=== PATIENT | female | born 1945 | race Hispanic/Latino ===

== ENCOUNTER → 2017-06-10 | Outpatient (CLI) | payer MEDICARE, OTHER ==
[~2017-06-10] MED LIST: CIPRO PO; ESCITALOPRAM PO; LEVETIRACETAM PO; NIFEDIPINE PO; VESICARE PO
--- NOTE | 2017-06-10 14:13 | Diagnostic Imaging Report ---
PROCEDURE:US RETROPERITONEAL ( KIDNEY ). COMPARISON:None. INDICATIONS:Microscopic Hematuria, Urianary Tract Infection TECHNIQUE: Quintero-scale and color sonographic images of the bilateral kidneys and bladder where obtained in transverse and longitudinal planes. FINDINGS: RIGHT KIDNEY: 7.6 x 4.3 x 4.6 cm, cortex 1.2 cm Cysts: None Solid masses: None Stones: None Hydronephrosis: Pelviectasis Echogenicity: Increased LEFT KIDNEY: 8.9 x 5.7 x 4.8 cm, cortex 1 cm Cysts: None Solid masses: None Stones: None Hydronephrosis: Pelviectasis Echogenicity: Increased Bladder: Unremarkable. Both ureteral jets visualized. CONCLUSION: 1. Increased renal echogenicity suggestive of medical renal disease. 2. If hematuria persists and if GFR permits, consider CT urography for further evaluation. Dictated by: Boyd Rangel M.D. on 06/10/2017 at 14:12 Electronically approved by: Boyd Rangel M.D. on 06/10/2017 at 14:12
== END ==
LOC: US 11:13
PROVIDERS: ATTEND Urology
DX: R31.9 Hematuria, unspecified (principal); N39.0 Urinary tract infection, site not specified
CPT/HCPCS: 76770

== ENCOUNTER → 2017-06-14 | Day surgery (SDC) | payer MEDICARE, OTHER ==
[2017-06-12 12:17] LABS: BASOPHILS % 0.8 % (0.0-1.0); EOSINOPHILS # (AUTO) 0.1 (0.0-0.4); EOSINOPHILS % 1.3 % (0.0-6.0); HEMATOCRIT 37.4 % (34.2-44.1); HEMOGLOBIN 12.6 g/dL (12.0-16.0); LYMPHOCYTES # (AUTO) 1.4 (1.0-3.2); LYMPHOCYTES % 34.3 % (18.0-39.1); MEAN CORPUSCULAR HEMOGLOBIN 33.1 pg (28-32); MEAN CORPUSCULAR HGB CONC 33.7 g/dL (31-35); MEAN CORPUSCULAR VOLUME 98.2 fL (81-99); MONOCYTES # (AUTO) 0.5 (0.2-0.8); MONOCYTES % 12.9 % (4.4-11.3); NEUTROPHILS % 50.4 % (38.7-80.0); PLATELET COUNT 150 x10e3/uL (140-360); RED BLOOD COUNT 3.81 x10e6/uL (3.6-5.1); RED CELL DISTRIBUTION WIDTH 12.5 % (11.7-14.4)
--- NOTE | 2017-06-12 13:48 | Diagnostic Imaging Report ---
PROCEDURE: X-RAY CHEST, TWO VIEWS COMPARISON: None. INDICATIONS: PRE OPERATIVE CHEST X-RAY UTI FINDINGS: LUNGS: Lateral views are suboptimal due to motion. No consolidation. Pulmonary vasculature is mildly prominent likely due to low lung volumes. PLEURA: No effusions or pneumothorax. HEART \T\ MEDIASTINUM: The heart is mildly enlarged. Aorta is ectatic. No hilar lymphadenopathy. BONES \T\ SOFT TISSUES: Diffusely demineralized. No focal osseous lesions.. CONCLUSION: Compromised study as described above. Mild cardiomegaly with central pulmonary vascular prominence likely due to pulmonary venous hypertension. No acute pulmonary process. Dictated by: Katherine Rogers M.D. on 06/12/2017 at 13:48 Electronically approved by: Katherine Rogers M.D. on 06/12/2017 at 13:48
[~2017-06-14] MED LIST changes: +CEFTRIAXONE SOD 1 GM VIAL ONE; +IOPAMIDOL 610MG/1ML 300 MG/ML VIAL IV ONE; +LIDOCAINE HCL 2% LOCAL INJ 5 ML SDV VIAL INJ ONE; +ONDANSETRON HCL INJ 2 MG/ML VIAL ONE; +PROPOFOL IV EMULSION 10 MG/ML 20 ML VIAL ONE; +SEVOFLURANE INHAL SOLN 250 ML PEN BTL ONE
--- OUTSIDE RECORDS SUMMARY | 2017-06-14 07:50 | XMS REPORT ---
Author Author [facility] Address Unknown Phone Unavailable Care Team Providers Care Immunologist Name Role Phone ARIEL BORJAS Unavailable Unavailable IKNGMERISSA Stallworth Unavailable Unavailable Problems This patient has no known problems. Allergies, Adverse Reactions, Alerts This patient has no known allergies or adverse reactions. Medications This patient has no known medications. Results Test Description Test Time Test Comments Text Results Atomic Results Result Comments MR, BRAIN, WITH 2017-05-24 14:21:00 FINAL REPORT MRI Brain with and without contrast Clinical History: MALIGNANT NEOPLASM BRAIN Technique: MRI of the brain utilizing axial T1, T2, FLAIR, GRE, DWI, sagittal T1 ; and postgadolinium axial, sagittal, and coronal T1-weighted images. Comparisons: 01/17/2017 and 11/07/2016 Findings: Left-sided craniotomy changes are again seen with decreased masslike enhancement in the left anterior temporal surgical cavity. Solid enhancement of the anteromedial left temporal lobe currently measures approximately 1 cm in maximal thickness, previously spanning approximately 3.0 cm TV x 1.5 cm AP. Left anterior temporal FLAIR signal abnormality is slightly decreased. Other left cerebral white matter FLAIR signal abnormality is unchanged. Minimal ependymal enhancement along the surface of the left lateral ventricle has essentially resolved over the frontal horn, with a punctate focus remaining over the occipital horn. There is ex vacuo dilatation of the left lateral ventricle without hydrocephalus or midline shift. There is no evidence of acute infarct or hemorrhage. The craniocervical junction is preserved. The major intracranial flow-voids appear patent. IMPRESSION: Since 01/17/2017, decreased masslike enhancement in the left anterior temporal lobe compatible with treatment response. Left lateral ventricular ependymal enhancement has nearly resolved. Signed: Clemente Mac MDReport Verified Date/Time: 05/24/2017 14:21:26 Reading Location: [facility] C0[facility] Neuro Reading Room -CREATININE 2017-05-24 09:11:00 POC-CREATININE (WINSOME) (test ezoz=4072) 0.8 mg/dL 0.6-1.3 TESTED AT [address] [address] POC-EGFR (WINSOME) (test nyfk=8036) 71 mL/min/1.73M2 MR, BRAIN, [id number] 13:56:00FINAL REPORT MRI Brain with and without contrast 01/17/2017 1:49 PM CLINICAL HISTORY: GLIOBLASTOMA TECHNIQUE: Multiplanar, multisequence MR imaging of the brain was performed, utilizing the following imaging sequences: Axial T1, T2, FLAIR, GRE, DWI/ADC; sagittal T1; postcontrast axial, sagittal, and coronal T1. COMPARISON: 11/07/2016 , 09/04/2016, 09/06/2015. FINDINGS: There is increased irregular enhancement in the anterior left temporal lobe, with concomitant increased T2/FLAIR signal abnormality. An adjacent peripherally enhancing cystic lesion is similar- appearing. Small foci of ependymal enhancement about the left lateral ventricle are less conspicuous but remain apparent. Nonenhancing T2/FLAIR signal abnormality in the left greater than right supratentorial white matter is unchanged. There is unchanged ex vacuo dilation of the left lateral ventricle , with resultant leftward deviation of the midline. There is no acute infarct, hematoma, hydrocephalus, or extra-axial collection. There is generalized parenchymal volume loss. Normal appearing flow-voids are present in the major intracranial vascular structures. The sellar and pineal regions, craniocervical junction, orbits, face, and skull base are without worrisome finding. IMPRESSION :1. Since 11/07/2016, greater irregular enhancement in the anterior left temporal lobe, which may reflect progression of disease and/or treatment response.2. Diminished ependymal enhancement about the left lateral ventricle. Signed: Dario Paulaeport Verified Date/Time: 01/17/2017 13:56:10 Reading Location: [facility] Radiology Reading Room -[id number] 11: 15:00* Test Item Value Reference Range Comments POC-CREATININE (WINSOME) (test byrs=2044) 0.8 mg/dL 0.6-1.3 TESTED AT [address] [address] POC-EGFR (BEAKER) (test lmwk=1444) 71 mL/min/1.73M2 [id number] 09:52:00* Test Item Value Reference Range Comments POC-CREATININE (BEAKER) (test bywk=1527) 0.7 mg/dL 0.6-1.3 TESTED AT [place] [address] POC-EGFR (BEAKER) (test rgwd=3170) 83 mL/min/1.73M2 [id number] 10:01:00* Test Item Value Reference Range Comments POC-CREATININE (BEAKER) (test ooti=2107) 1.1 mg/dL 0.6-1.3 TESTED AT [address] [address] POC-EGFR (BEAKER) (test sxjn=4340) 49 mL/min/1.73M2 CHEST 2 VIEWS [place] [address] Patient Name: RICHY PHILLIP MR #: [id number] : 1945 Age/Sex: 72/F Req #: [id number] Adm Physician: Ordered by: ARIEL BORJAS MD Report #: [id number] Location: OR Room/Bed: Procedure: [id number] DX/ CHEST 2 VIEWS Exam Date: 06/12/17 Exam Time: 1220 REPORT STATUS: Signed PROCEDURE: X-RAY CHEST, TWO VIEWS COMPARISON: None. INDICATIONS: PRE OPERATIVE CHEST X-RAY UTI FINDINGS: LUNGS : Lateral views are suboptimal due to motion. No consolidation. Pulmonary vasculature is mildly prominent likely due to low lung volumes. PLEURA : No effusions or pneumothorax. HEART T MEDIASTINUM: The heart is mildly enlarged. Aorta is ectatic. No hilar lymphadenopathy. BONES T SOFT TISSUES: Diffusely demineralized. No focal osseous lesions.. CONCLUSION: Compromised study as described above. Mild cardiomegaly with central pulmonary vascular prominence likely due to pulmonary venous hypertension. No acute pulmonary process. Dictated by : Barbara Rogers M.D. on 06/12/2017 at 13:48 Electronically approved by : Barbara Rogers M.D. on 06/12/2017 at 13:48 Dictated By: BARBARA ROGERS MD 1348 COPY TO: ARIEL BORJAS MD US RENAL RETROPERITONEAL COMP [place] [address] Patient Name: JAMIE PHILLIP MR #: [id number] : 1945 Age/Sex: 72/F Req #: [id number] Adm Physician: Ordered by: ARIEL BORJAS MD Report #: [id number] Location: Room/Bed: Procedure: [id number] US/US RENAL RETROPERITONEAL COMP Exam Date: Exam Time: REPORT STATUS: Signed PROCEDURE: US RETROPERITONEAL ( KIDNEY ). COMPARISON: None. INDICATIONS: Microscopic Hematuria, Urianary Tract Infection TECHNIQUE: Quintero-scale and color sonographic images of the bilateral kidneys and bladder where obtained in transverse and longitudinal planes. FINDINGS: RIGHT KIDNEY: 7.6 x 4.3 x 4.6 cm, cortex 1.2 cm Cysts: None Solid masses: None Stones: None Hydronephrosis: Pelviectasis Echogenicity: Increased LEFT KIDNEY : 8.9 x 5.7 x 4.8 cm, cortex 1 cm Cysts: None Solid masses: None Stones: None Hydronephrosis: Pelviectasis Echogenicity: Increased Bladder: Unremarkable. Both ureteral jets visualized. CONCLUSION: 1. Increased renal echogenicity suggestive of medical renal disease. 2. If hematuria persists and if GFR permits, consider CT urography for further evaluation. Dictated by: Boyd Bowling M.D. on 06/10/2017 at 14: 12 Electronically approved by: Boyd Bowling M.D. on 06/10/2017 at 14: 12 Dictated By: BOYD BOWLING MD 1412 Transcribed By: DION on 06/10/17 1412 COPY TO: ARIEL BORJAS MD
--- OUTSIDE RECORDS SUMMARY | 2017-06-14 07:50 | XMS REPORT | Clinical Summary ---
Author Author [facility] Address Unknown Phone Unavailable Care Team Providers Care Motor Driver Name Role Phone PCP Unavailable Allergies No Known Allergies Current Medications Prescription Sig. Disp. Refills Start End Date Status Date NIFEdipine (ADALAT CC) 30 Take 30 mg by mouth Active MG 24 hr tablet daily. escitalopram oxalate Take 5 mg by mouth daily. Active (LEXAPRO) 10 MG tabletIndications: major depressive disorder simvastatin (ZOCOR) 20 MG Take 20 mg by mouth Active tablet nightly. mirtazapine (REMERON) 7.5 Take 7.5 mg by mouth Active MG tabletIndications: nightly. major depressive disorder temozolomide (TEMODAR) Take by mouth daily. Active 140 MG capsule naproxen (NAPROSYN) 250 Take 1 tablet (250 mg 0 02/14/20 Active MG tablet total) by mouth 2 (two) 15 times daily with breakfast and dinner As needed only. Hospital, Clinic, or Ordered Dose Route Frequency Start End Date Status Other Facility Date Administered Medication gadobenate dimeglumine 10 mL IV ONCE PRN 09/05/19 09/05/19 Ended (MULTIHANCE) injection 10 17 17 mL gadobenate dimeglumine 20 mL IV ONCE PRN 11/08/19 11/08/19 Ended (MULTIHANCE) injection 20 17 17 mL gadobenate dimeglumine 20 mL IV ONCE PRN 01/18/20 01/18/20 Ended (MULTIHANCE) injection 20 17 17 mL gadobenate dimeglumine 20 mL IV ONCE PRN 05/24/19 05/24/19 Ended (MULTIHANCE) injection 20 18 18 mL Active Problems Problem Noted Date GBM (glioblastoma multiforme) (HCC) 02/12/2015 HTN (hypertension) 02/12/2015 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 Neoplasm of brain (HCC) 07/22/2014 Encounters Date Type Specialty Care Team Description 05/24/2017 Procedure visit Janusz Aguilera Malignant neoplasm of MD temporal lobe (HCC) 05/17/2017 Outside Orders Janusz Aguilera, Malignant neoplasm of MD temporal lobe (HCC) (Primary Dx) 01/17/2017 Procedure visit Janusz Aguilera Glioblastoma (HCC) 01/08/2017 Outside Orders Janusz Aguilera Glioblastoma (HCC) (Primary Dx) 11/07/2016 Procedure visit Janusz Aguilera, Malignant neoplasm of MD temporal lobe of brain (HCC) 10/18/2016 Outside Orders Janusz Aguilera, Malignant neoplasm of MD temporal lobe of brain (HCC) (Primary Dx) 09/04/2016 Procedure visit Janusz Aguilera Malignant neoplasm of MD temporal lobe (HCC) 08/30/2016 Outside Orders Janusz Aguilera, Malignant neoplasm of temporal lobe (HCC) (Primary Dx) after 06/13/2016 Immunizations Name Dates Previously Given Next Due Pneumococcal 07/24/2014 Polysaccharide (Pneumovax) Social History Tobacco Use Types Packs/Day Years Used Date Never Smoker Alcohol Use Drinks/Week oz/Week Comments No Sex Assigned at Date Recorded Not on file Last Filed Vital Signs Not on file Plan of Treatment Not on file Implants Implanted Type Area Mowing Machine Operator Device Expiration Model / Identifier Date Serial / Lot Sealant,Floseal Hemostatic Matrix Cement/Jovanny Left: PARKER 10/13/2015 [id number] / 10ml - [id number] ler/Adhesi Brain BIOSCIENCE / Implanted: Qty: 2 on 07/22/2014 by ve FORMER FUSION [id number] Toby Reddy MD MEDICAL Sealant System,Duraseal Iii 5ml - Cement/Jovanny Left: COVIDIEN 2015 [id number] / [id number] ler/Adhesi Brain / Implanted: Qty: 1 on 07/22/2014 by ve [id number] oTby Reddy MD Plate,Neuro Ti Box Lo Pro [id number] Fracture/F Left: Head SYNTHES 421.511 / 4h - [id number] ixation MAXILLOFACIAL / Implanted: Qty: 1 on 07/22/2014 by Toby Reddy MD Cover,Bur Hole Low Profile Ti 17mm Fracture/F Left: Head SYNTHES 421.527 / - [id number] ixation MAXILLOFACIAL / Implanted: Qty: 1 on 07/22/2014 by Toby Reddy MD Screw,Matrixneuro Selfdrill Ti Fracture/F Left: Head L-3 [employer] [id number] 1.5x4mm - [id number] ixation .01 / Implanted: Qty: 13 on 07/22/2014 by / Toby Reddy MD Graft,Durepair Regen Matrix 3x3 - Tissue Left: [employer] ([place]) 12/12/2016 [id number] / [id number] Graft/Subs Brain NEUROMODULATION / Implanted: Qty: 1 on 07/22/2014 by [id number] Toby Reddy MD Results * MR brain without & with IV contrast (05/24/2017 10:00 AM) Only the most recent of 4 results within the time period is included. Specimen Performing Laboratory [employer] Narrative FINAL REPORT MRI Brain with and without contrast Clinical History: MALIGNANT NEOPLASM BRAIN Technique: MRI of the brain utilizing axial T1, T2, FLAIR, GRE, DWI, sagittal T1; and postgadolinium axial, sagittal, and coronal T1-weighted [...] enhancement has nearly resolved. Signed: Clemente Mac MD Report Verified Date/Time:05/24/2017 14:21:26 Reading Location: [address] Neuro Reading Room Procedure Note Interface, External Ris In - 05/24/2017 2:23 PM EVALUATION MANAGER FINAL REPORT MRI Brain with and without contrast Clinical History: MALIGNANT NEOPLASM BRAIN Technique: MRI of the brain utilizing axial T1, T2, FLAIR, GRE, DWI, sagittal T1; and postgadolinium axial, sagittal, and coronal T1-weighted [...] enhancement has nearly resolved. Signed: Clemente Mac MD Report Verified Date/Time: 05/24/2017 14:21:26 Reading Location: [address] Neuro Reading Room * POC-Creatinine (05/24/2017 9:08 AM) Only the most recent of 4 results within the time period is included. Component Value Ref Range POC-Creatinine 0.8Comment: TESTED AT [facility]- [address] [place] [address] 0.6 - 1.3 mg/dL [facility] [address] POC-EGFR 71 mL/min/1.73M2 Specimen Performing Laboratory Blood [facility] [address] [address] after 06/13/2016
--- NOTE | 2017-06-14 09:31 | Operative Report ---
DATE OF PROCEDURE: June 14, 2017 PREOPERATIVE DIAGNOSES 1. Multiple chronic urinary tract infections. 2. Hematuria. 3. Clinical signs and symptoms of interstitial cystitis. POSTOPERATIVE DIAGNOSES 1. Multiple chronic urinary tract infections. 2. Hematuria. 3. Clinical signs and symptoms of interstitial cystitis. PROCEDURES 1. Cystourethroscopy with hydrodissection (entirely separate procedure performed for clinical signs and symptoms of interstitial cystitis with hematuria). 2. Cystourethroscopy with left ureteral catheterization and left retrograde pyelogram (entirely separate procedure performed for multiple chronic urinary tract infections). 3. Cystourethroscopy with right ureteral catheterization and right retrograde pyelogram (entirely separate procedure performed for multiple chronic urinary tract infections). 4. Supervision of fluoroscopy. 5. Interpretation of retrograde ureteropyelography. 6. Cystourethroscopy with fulguration of bleeders, right trigone. ANESTHESIA: General. ESTIMATED BLOOD LOSS: Minimal. COMPLICATIONS: None. INDICATIONS: Mrs. Guaman is a very pleasant 72-year-old female with a history of hematuria and multiple chronic urinary tract infections, and clinical symptoms of interstitial cystitis. She and I had a long discussion about alternatives, risks and benefits including doing nothing, cystoscopy with IVP, retrograde pyelograms, renal ultrasound, hydrodissection. She voiced understanding of the options, alternatives, risks and benefits, nephrotoxic risk of dye and her renal insufficiency. She elected to proceed with retrograde pyelograms. PROCEDURE IN DETAIL: After informed consent was obtained, the patient was taken to the operative suite and placed supine on the operating table. She was then placed in the dorsal lithotomy position and sterilely prepped and draped in the standard fashion for cystoscopy. A grade 2-3 cystocele was noted. There was positive vaginal atrophy. The urethra was catheterized with a 22.5-Luxembourger cystoscope and panendoscopy of the bladder revealed no tumors and no stones. Both ureteral orifices were within normal anatomic location and position and were seen to efflux clear urine. 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 There was a moderate degree of trabeculation. Hydrodistention was performed revealing a capacity of only 600 mL. There were no glomerulations. There were no Sanjiv's ulcers. Bilateral retrograde pyelograms were performed, which were normal. On the right hemitrigone, it was noted that there was an area oozing, which did not stop throughout the entire case. Utilizing a Bugbee and pinpoint electrocautery, I fulgurated this bleeding area on the right hemitrigone. There were no tumors seen throughout. There were no stones seen throughout. The patient's bladder was drained. She was awakened from anesthesia and transported to the recovery room in excellent condition. SUPERVISION OF FLUOROSCOPY, INTERPRETATION OF RETROGRADE URETERAL PYELOGRAPHY: I was present throughout the entire procedure and I supervised the use of fluoroscopy. There was no radiologist present at any time during this procedure. Attention was turned toward the left and right ureteral orifices, and catheterized with an 8-Luxembourger cone-tipped catheter. In a retrograde fashion, contrast was injected revealing delicate ureters, delicate pelviceal systems. No evidence of filling defects. No evidence of hydronephrosis. IMPRESSION: Normal retrograde pyelograms. Job#: [id number]
== END | disposition home or self-care (01) ==
LOC: OR 07:47
PROVIDERS: ATTEND Urology
DX: N30.80 Other cystitis without hematuria (principal); N81.10 Cystocele, unspecified; R32 Unspecified urinary incontinence; N95.2 Postmenopausal atrophic vaginitis; R35.1 Nocturia; N32.89 Other specified disorders of bladder; G81.91 Hemiplegia, unspecified affecting right dominant side; I10 Essential (primary) hypertension; R00.1 Bradycardia, unspecified; F32.9 Major depressive disorder, single episode, unspecified; Z01.810 Encounter for preprocedural cardiovascular examination; Z01.812 Encounter for preprocedural laboratory examination; Z01.818 Encounter for other preprocedural examination; Z68.37 Body mass index [BMI] 37.0-37.9, adult
CPT/HCPCS: 36415; 52005; 52214; 71046; 74420; 85025; 93005; C1758; J0696; J2001; J2405; Q9967